=== PATIENT | female | born 1955 | race Two or more races ===

== ENCOUNTER 2016-08-28 13:03 | Inpatient (IN) | payer SELFPAY ==
[~2016-08-28] VITALS: Ht 157.5 cm; Wt 67.2 kg
[2016-08-28] MEDS ORDERED: ONDANSETRON HCL 4 MG/2 ML VIAL IV ONE (13:30)
[2016-08-28] MEDS ORDERED: MORPHINE SULF INJ 2 MG/ML SYRINGE 1ML IV ONE (13:30)
[2016-08-28 13:54] LABS: Basophils # (auto) 0 uL; Basophils % (auto) 0.3 % (0.0-2.0); Eosinophils # (auto) 0.1 uL; Eosinophils % (auto) 1.2 % (0.0-7.0); Hematocrit 38.9 % (36.0-46.0); Hemoglobin 13.2 g/dL (12.2-16.2); Lymphocytes # (auto) 1.3 uL; Lymphocytes % (auto) 16.9 % (10.0-50.0); Mean Corpuscular Hgb Conc. 33.8 g/dL (32.0-36.0); Mean Corpuscular Volume 88.6 fL (80.0-100.0); Mean Platelet Volume 8.3 fL (7.4-10.4); Monocytes # (auto) 0.5 uL; Monocytes % (auto) 6.1 % (0.0-12.0); Neutrophils % (auto) 75.5 % (37.0-80.0); Platelet Count (auto) 315 10^3/uL (140-450); Red Cell Distribution Width 13.1 % (11.6-16.0); White Blood Cell 7.9 10^3/uL (4.4-10.8)
[2016-08-28 14:18] LABS: Albumin 4.1 g/dL (3.4-5.0); BUN/Creatinine Ratio 16.1; Bilirubin, Total 0.5 mg/dL (0.2-1.0); Calcium 9.1 mg/dL (8.5-10.1); Potassium 3.8 mmol/L (3.5-5.1); Total Protein 7.8 g/dL (6.4-8.2)
[2016-08-28 14:52] LABS: Magnesium 2.4 mg/dL (1.6-2.6)
[2016-08-28] MEDS ORDERED: MORPHINE SULF INJ 2 MG/ML SYRINGE 1ML IV PRN ×2 (15:30)
[2016-08-28] MEDS ORDERED: TEMAZEPAM 15 MG CAP PO PRN (15:30)
[2016-08-28] MEDS ORDERED: DOCUSATE SOD 100 MG CAP PO PRN (15:30)
[2016-08-28] MEDS ORDERED: ACETAMINOPHEN 325 MG TAB PO PRN (15:30)
[2016-08-28] MEDS ORDERED: AZITHROMYCIN 500MG/D5W 250ML 250 ML IV ONE (15:30)
[2016-08-28] MEDS ORDERED: HYDROcodone-ACET 5/325MG TAB PO PRN (15:30)
[2016-08-28] MEDS ORDERED: cefTRIAXone 1GM/50ML D5W 50 ML IV ONE (15:30)
[2016-08-28] MEDS ORDERED: ONDANSETRON HCL 4 MG/2 ML VIAL IV PRN (15:30)
[2016-08-28] MEDS ORDERED: NITROGLYCERIN 0.4 MG SL TAB SL PRN (15:30)
[2016-08-28] MEDS ORDERED: FAMOTIDINE 20 MG TAB PO ONE (15:45)
[2016-08-28] MEDS ORDERED: ENOXAPARIN SOD 40 MG/0.4 ML SYRINGE SC ONE (15:45)
[2016-08-28] MEDS ORDERED: MULTIPLE VITAMIN TAB PO ONE (15:45)
[2016-08-28] MEDS ORDERED: ASPirin-EC 81 mg tab PO ONE (15:45)
[2016-08-28 16:34] LABS: B-Type Natriuretic Peptide 51.67 pg/mL (0-100)
[2016-08-28 17:00] VITALS: BP 126/70
[2016-08-28 17:30] LABS: Temperature: 23.3 C (20.0-25.0)
[2016-08-28 18:02] VITALS: BP 126/70
[2016-08-28] MEDS ORDERED: ATORVASTATIN 20 MG TAB PO SCH (22:00)
[2016-08-28] MEDS: SODIUM CHLOR 0.9% PF (SALINE LOCK) 10ML VIAL IV SCH (22:10)
[2016-08-28] MEDS: FAMOTIDINE 20 MG TAB PO SCH (22:13)
[2016-08-28 22:45] VITALS: BP 112/65
[2016-08-29 01:01] LABS: Urine Bilirubin Negative (Negative); Urine Blood Negative /uL (Negative); Urine Color Yellow (Yellow); Urine Glucose Normal (Normal); Urine Ketone Negative (Negative); Urine Nitrite Negative (Negative); Urine RBC <1 /hpf (0 - 4); Urine Urobilinogen Normal (Negative)
[2016-08-29 05:37] VITALS: BP 101/60
[2016-08-29 06:00] LABS: Basophils # (auto) 0 uL; Basophils % (auto) 0.5 % (0.0-2.0); Eosinophils # (auto) 0.1 uL; Hematocrit 35.4 % (36.0-46.0); Lymphocytes # (auto) 2.2 uL; Lymphocytes % (auto) 31.2 % (10.0-50.0); Mean Corpuscular Hemoglobin 30.5 pg (28.0-32.0); Mean Corpuscular Volume 89.8 fL (80.0-100.0); Mean Platelet Volume 8.4 fL (7.4-10.4); Monocytes # (auto) 0.6 uL; Monocytes % (auto) 8.2 % (0.0-12.0); Neutrophils # (auto) 4.1 uL; Neutrophils % (auto) 58.1 % (37.0-80.0); Platelet Count (auto) 289 10^3/uL (140-450); Red Cell Distribution Width 13.2 % (11.6-16.0)
[2016-08-29] MEDS: SODIUM CHLOR 0.9% PF (SALINE LOCK) 10ML VIAL IV SCH (06:00)
[2016-08-29 06:13] LABS: Albumin 3.1 g/dL (3.4-5.0); BUN/Creatinine Ratio 9.6; Calcium 8.5 mg/dL (8.5-10.1)
[2016-08-29 06:25] LABS: Bilirubin, Total 0.4 mg/dL (0.2-1.0); Total Protein 6.8 g/dL (6.4-8.2)
[2016-08-29 08:00] VITALS: BP 104/64
[2016-08-29 09:00] VITALS: BP 104/64
[2016-08-29] MEDS ORDERED: cefTRIAXone 1GM/50ML D5W 50 ML IV SCH (09:00)
[2016-08-29] MEDS ORDERED: ENOXAPARIN SOD 40 MG/0.4 ML SYRINGE SC SCH (10:00)
[2016-08-29] MEDS ORDERED: ASPirin-EC 81 mg tab PO SCH (10:00)
[2016-08-29] MEDS ORDERED: AZITHROMYCIN 500MG/D5W 250ML 250 ML IV SCH (10:00)
[2016-08-29] MEDS ORDERED: MULTIPLE VITAMIN TAB PO SCH (10:00)
[2016-08-29] MEDS: FAMOTIDINE 20 MG TAB PO SCH (10:18)
[2016-08-29 11:46] VITALS: BP 104/64
[2016-08-29 13:00] VITALS: BP 106/65
== END 2016-08-29 14:45 | disposition home or self-care (01) | DRG 103 ==
LOC: ER 13:18 → TELE 13:19 → TELE-EAST 16:39
PROVIDERS: ADMIT Internal Medicine; ATTEND Internal Medicine
DX: R51 Headache (principal); J98.11 Atelectasis; R53.1 Weakness; R42 Dizziness and giddiness; R11.2 Nausea with vomiting, unspecified; Z82.3 Family history of stroke; Z83.3 Family history of diabetes mellitus; Z90.49 Acquired absence of other specified parts of digestive tract; Z88.5 Allergy status to narcotic agent
CPT/HCPCS: 36415; 70450; 71010; 80053; 81001; 83735; 83880; 84443; 84484; 85025; 85652; 87040; 87086; 92610; 93005; 93886; 94761; 96365; 96368; 96375; J0696; J2405